=== PATIENT | male | born 1940 | race American Indian/Alaskan Native ===

== ENCOUNTER 2017-12-26 12:12 | Emergency (ER) | payer MEDICARE, OTHER ==
[2017-12-26 12:14] VITALS: BMI 25.7
[2017-12-26 12:24] VITALS: TEMP 98.8
--- NOTE | 2017-12-26 12:46 | C.PDOC ---
History Of Present Illness <Meenakshi Blackwell - Last Filed: 12/26/17 12:50> <RenukaClaudia lepe - Last Filed: 12/26/17 13:58> 77 year old male sent by PMD to ED for further evaluation of elevated sodium levels. Patient states his PMD office told him that he had elevated sodium levels from outpatient labs that were done on 12/22/17. Patient is asymptomatic and states he feels greats. Patient denies any diuretic use, diarrhea, fever, chills, SOB, chest pain, weakness, numbness. (Meenakshi Blackwell) History Per: Patient History/Exam Limitations: no limitations Onset/Duration Of Symptoms: Days Current Symptoms Are (Timing): Gone Recent travel outside of the [place]: No <Meenakshi Blackwell - Last Filed: 12/26/17 12:50> <Renuka,Claudia A - Last Filed: 12/26/17 13:58> Time Seen by Provider: 12/26/17 12:33 Chief Complaint (Nursing): Abnormal Labs Past Medical History Reviewed: Historical Data, Nursing Documentation, Vital Signs - Medical History PMH: Anemia, Arthritis (bilateral knees), Diabetes, Gastritis, HTN, Hypercholesterolemia Denies: Depression, Chronic Kidney Disease Surgical History: Endoscopy Family History: States: No Known Family Hx - Social History Hx Tobacco Use: Yes Hx Alcohol Use: No Hx Substance Use: No - Immunization History Hx Tetanus Toxoid Vaccination: No Hx Influenza Vaccination: No Hx Pneumococcal Vaccination: No <Meenakshi Blackwell - Last Filed: 12/26/17 12:50> Vital Signs: Last Vital Signs Temp 98.8 F 12/26/17 12:18 Pulse 92 H 12/26/17 12:18 Resp 20 12/26/17 12:18 BP 154/90 H 12/26/17 12:18 Pulse Ox 98 12/26/17 13:02 - [facility] Procedures ARTHROCENTESIS (05/30/13) COLONOSCOPY (06/24/13) ESOPHAGOGASTRODUODENOSCOPY [EGD] W/CLOSED BIOPSY (06/24/13) PACKED CELL TRANSFUSION (05/30/13) THERAPEUTIC ERYTHROCYTAPHERESIS (06/24/13) Review Of Systems Except As Marked, All Systems Reviewed And Found Negative. Constitutional: Negative for: Fever, Chills Cardiovascular: Negative for: Chest Pain Respiratory: Negative for: Shortness of Breath Gastrointestinal: Negative for: Diarrhea Neurological: Negative for: Weakness, Numbness <Meenakshi Blackwell - Last Filed: 12/26/17 12:50> Physical Exam - Physical Exam Appears: Non-toxic, No Acute Distress Skin: Warm, Dry Head: Atraumatic, Normacephalic Eye(s): bilateral: Normal Inspection, PERRL, EOMI Oral Mucosa: Moist Neck: Supple Chest: Symmetrical Cardiovascular: Rhythm Regular Respiratory: Normal Breath Sounds, Other (NARD) Gastrointestinal/Abdominal: Soft, No Tenderness Neurological/Psych: Oriented x3, Normal Speech, Normal Cognition Gait: Steady <Meenakshi Blackwell - Last Filed: 12/26/17 12:50> ED Course And Treatment O2 Sat by Pulse Oximetry: 98 (RA) Pulse Ox Interpretation: Normal <Meenakshi Blackwell - Last Filed: 12/26/17 12:50> - Laboratory Results Result Diagrams: 12/26/17 13:11 ECG: Interpreted By Me, Viewed By Me ECG Rhythm: Sinus Rhythm (87) <Claudia Grayson - Last Filed: 12/26/17 13:58> Medical Decision Making <Meenakshi Blackwell - Last Filed: 12/26/17 12:50> <Claudia Grayson - Last Filed: 12/26/17 13:58> Medical Decision Making: Plan: * Labs (Meenakshi Blackwell) Disposition - Disposition Disposition Time: 13:00 <Meenakshi Blackwell - Last Filed: 12/26/17 12:50> Counseled Patient/Family Regarding: Diagnosis, Need For Followup, Rx Given - Disposition Disposition Time: 13:55 <Claudia Grayson - Last Filed: 12/26/17 13:58> - Disposition Referrals: Hima Swenson MD [Staff Provider] - Disposition: HOSPITALIZED Condition: STABLE Forms: [facility] (Belarusian), General Discharge Instructions - Clinical Impression Clinical Impression: Encounter for blood test - Scribe Statement The provider has reviewed the documentation as recorded by the Scribe <Meenakshi Blackwell - Last Filed: 12/26/17 12:50> <Claudia Grayson - Last Filed: 12/26/17 13:58> - Scribe Statement Jayro Huang (Meenakshi Blackwell) Provider Attestation: All medical record entries made by the Scribe were at my direction and personally dictated by me. I have reviewed the chart and agree that the record accurately reflects my personal performance of the history, physical exam, medical decision making, and the department course for this patient. I have also personally directed, reviewed, and agree with the discharge instructions and disposition. (Meenakshi Blackwell) Physician Patient Turnover Patient Signed Over To: Claudia Grayson Handoff Comments: FU LABS, DISPO <Meenakshi Blackwell - Last Filed: 12/26/17 12:50> Addendum <Meenakshi Blackwell - Last Filed: 12/26/17 12:50> <Claudia Grayson - Last Filed: 12/26/17 13:58> Addendum: 12/26/17 13:55 Patient resting comfortably, states he feels well, has no physical complaints. Na is 141. Patient given copy of blood work, instructed to follow up with PMD in 1-2 days. He understands he should return to ED if he has any concerning symptoms. (Claudia Grayson)
[2017-12-26 13:39] LABS: CALCIUM 9.1 mg/dl (8.6-10.4); GFR NON-AFRICAN AMERICAN > 60
[2017-12-26 13:41] LABS: BLOOD UREA NITROGEN 20 mg/dL (9-20)
[2017-12-26 14:09] VITALS: BP 162/92; PULSE 81; RESP 18; O2SAT 99
== END 2017-12-26 14:19 | disposition home or self-care (01) ==
LOC: C.ER 12:12
DX: Z00.00 Encounter for general adult medical examination without abnormal findings (principal)